=== PATIENT | female | born 1975 | race Caucasian/White ===

== ENCOUNTER → 2021-11-05 15:09 | Outpatient (BNVA) | payer OTHER, SELFPAY | PROVIDERS: PCP Internal Medicine; Visit Provider Nurse Practitioner Family | DX: R53.83 Other fatigue (principal); R56.9 Unspecified convulsions; G43.109 Migraine with aura, not intractable, without status migrainosus; G93.89 Other specified disorders of brain | CPT/HCPCS: 99212 ==

== ENCOUNTER → 2022-02-08 08:15 | Outpatient (BNVA) | payer OTHER, SELFPAY | PROVIDERS: PCP Internal Medicine; Visit Provider Nurse Practitioner Family | DX: R56.9 Unspecified convulsions (principal) ==

== ENCOUNTER 2024-03-01 10:47 | Outpatient (REF) | payer OTHER, SELFPAY ==
[2024-03-01 16:51] LABS: MANUAL DIFF FLAG NO
[2024-03-01 17:05] LABS: Basophils Absolute Auto 0.1 X10*3/uL (0.0-0.2); Basophils Percent Auto 0.8 % (0-2); Eosinophils Absolute Auto 0.1 X10*3/uL (0.0-0.4); Eosinophils Percent Auto 1.6 % (0-4); Hematocrit 39.8 % (37.0-47.0); Hemoglobin 13.2 g/dl (12.0-16.0); Imm Gran Abs Auto 0.02 X10*3/uL (0.00-0.03); Imm Gran Pct Auto 0.3 % (0.0-0.4); Lymphocytes Absolute Auto 1.7 X10*3/uL (1.2-4.9); Lymphocytes Percent Auto 21.8 % (20-40); Mean Corpuscular HGB Conc 33.2 g/dl (31.0-35.0); Mean Corpuscular Hemoglobin 31.9 pg (27.0-33.0); Mean Corpuscular Volume 96.1 fL (80.0-98.0); Mean Platelet Volume 9.8 fL (9.4-12.3); Monocytes Absolute Auto 0.5 X10*3/uL (0.1-1.2); Monocytes Percent Auto 5.9 % (2-11); Neutrophils Absolute Auto 5.4 x10*3/uL (2.0-8.3); Neutrophils Percent Auto 69.6 % (45-73); Platelet Count 312 X10*3/uL (160-400); Red Blood Count 4.14 X10*6/uL (4.20-5.50); White Blood Count 7.7 X10*3/uL (4.8-10.8)
[2024-03-01 17:35] LABS: Carbamazepine Tegretol 8.4 mcg/mL (5.0-12.0)
[2024-03-01 17:39] LABS: Alanine Aminotransferase 18 U/L (0-31); Albumin Level 4.3 g/dL (3.5-5.0); Alkaline Phosphatase 81 U/L (39-117); Anion Gap 14 (12-20); Aspartate Amino Transferase 16 U/L (5-31); Bilirubin Total 0.2 mg/dL (0.0-1.0); Blood Urea Nitrogen 15 mg/dL (9-16); Calcium 9.9 mg/dL (8.4-10.2); Carbon Dioxide 25 mmol/L (22-29); Chloride 104 mmol/L (96-108); Estimated Glomerular Filt Rate > 60; Glucose Random 93 mg/dL (60-115); Sodium 139 mmol/L (135-145); Total Protein 7.2 g/dL (6.5-8.0)
== END 2024-03-01 10:48 | disposition home or self-care (01) ==
LOC: HO.HKASLDS 10:47
PROVIDERS: Visit Provider Nurse Practitioner Family
DX: G40.909 Epilepsy, unspecified, not intractable, without status epilepticus (principal); G93.89 Other specified disorders of brain; G43.109 Migraine with aura, not intractable, without status migrainosus
CPT/HCPCS: 36415; 80053; 80156; 85025

== ENCOUNTER 2024-03-01 10:47 | Outpatient (AMB) | payer OTHER, SELFPAY ==
--- NOTE | 2024-03-01 10:49 | MHC.OFFVIS ---
Vital Signs 03/01/24 10:50 Height 5 ft 3 in Weight 175 lb 4 oz BMI 31.0 BP 114/78 Blood Pressure Location Rt brachial Position Sitting Pulse 88 Pulse Source Pulse Oximeter Pulse Oximetry (%) 97 Oxygen Delivery Method Room Air Intake Visit Reasons: Follow up - LVM w/add Intake Note: Patient presents for follow up. Allergies penicillin V Allergy (Unknown, Verified 03/01/24 10:51) unknown Penicillins [PENICILLINS] Allergy (Unknown, Verified 03/01/24 10:51) BREATHING DIFFICULTIES AND RASH sulfamethoxazole [From SEPTRA] Allergy (Unknown, Verified 03/01/24 10:51) RASH AND HIVES trimethoprim [From SEPTRA] Allergy (Unknown, Verified 03/01/24 10:51) RASH AND HIVES Septra Allergy (Unknown, Uncoded 03/01/24 10:51) Unknown Medication List - Last Reconciled 03/01/24 by MYRTLE Rain amitriptyline 25 mg PO DAILY carbamazepine ER 100 mg PO BID 90 days carbamazepine ER 400 mg PO BID 90 days clonazepam 2 mg PO prn seizure lasting > 2 minutes, may repeat x's 1 (and call 911) PRN; 30 days ibuprofen 800 mg PO .As needed magnesium oxide 400 mg PO BEDTIME 30 days mecobalamin (vitamin B12) mcg PO riboflavin (vitamin B2) (Vitamin B-2) 100 mg PO BID sennosides (senna) 17.2 mg PO BEDTIME PRN HPI Comments Details: 48-yr-old female presents for f/u visit. Pt endorses the following interval medical history changes: Pt was diagnosed w/ diverticulosis and diverticulitis following a hospitalization in Aug 2023 for sepsis. She has had an intentional weight loss- almost 50 lbs through diet and low impact exercises- walking, low impact strength training. She is following a keto diet- does have some cheat days. She is avoiding eating on the couch. She has not had any interval seizure activity. She is due for her f/u brain MRI. She is finding it a bit harder to wake up in the am. She feels she is renzo-menopausal- her menses is more irregular now. Occasionally may feel a little off balance- once every off balance- notes has always had this. Last migraine was about 8 months ago. Has stopped Amitriptyline. When she has a headache, checks to see if she has missed coffee, takes fluids, uses Tylenol, and sometimes takes a nap for a few hrs, may use a cold cap. Trying to avoid NSAIDs d/t diverticulosis. [facility] Medical History (Updated 03/01/24 @ 11:24 by MYRTEL Rain) delivery delivered Surgical History H/O tubal ligation Family History Father Cancer Mother Cancer HTN (hypertension) Maternal Grandmother Skin cancer Maternal Grandfather HTN (hypertension) Maternal Aunt HTN (hypertension) Social History Alcohol intake: current Alcohol intake frequency: holidays/special occasions only Patient Tobacco Use Status: Never used Tobacco Review of Systems Const All systems reviewed & are unremarkable except as noted in HPI and below Physical Exam Vital Signs: Last Vital Signs Pulse 88 03/01/24 10:50 BP 114/78 03/01/24 10:50 Pulse Ox 97 03/01/24 10:50 Oxygen Delivery Method Room Air 03/01/24 10:50 BMI result Body Mass Index 31.0 Const General: cooperative and no acute distress Orientation/consciousness: patient oriented x3 HEENT Head: Yes normocephalic Resp Effort & Inspection: normal respiratory effort and able to speak in complete sentences Neuro General: patient oriented x3, gait normal and CN's II-XI intact bilaterally Cognition (Neuro): normal cognition Motor exam (neuro): 5/5 motor strength present throughout Psych Appearance: grossly normal Mental Status: mental status grossly normal Speech and movement: Normal speech and movement present Affect: normal affect Attitude: cooperative Thought process: Normal thought process present Thought content: Normal thought content present Insight: Good insight present (Psych) Judgement: Good judgement present (Psych) Assessment & Plan Assessment & Plan (1) Focal seizure: Code(s): R56.9 - Unspecified convulsions Category: Medical (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 Pt has current supply of Clonazepam 2mg ODT prn breakthrough seizure > 2 min. Pt has seizure plan with work/family. F/U brain MRI due in/around February 2024. Check CBC, CMP, TSH, Tegretol level.. Continue B2 400mg qam, Magnesium 400mg qhs. Continue MVI, B-12, fiber tab. OTC Tylenol and rest prn migraine. Migraine tx contraindications- NSAIDs d/t diverticulosis. Future considerations: gepant, if migraines worsen. f/u in 1 yr or sooner prn. Orders: Orders Complete Blood Count Auto Diff Today Comprehensive Met. Panel Today Carbamazepine Tegretol Today G40.909 - Epilepsy, unspecified, not intractable, without status epilepticus Coding Level of Care Code Est Pt Level 4 (14025) Diagnoses Focal seizure R56.9 Suprasellar mass G93.89 Migraine with aura and without status migrainosus, not intractable G43.109
[2024-03-01 10:50] VITALS: BP 114/78; PULSE 88; O2SAT 97; BMI 31.0
== END 2024-03-01 11:31 | disposition home or self-care (01) ==
PROVIDERS: PCP Internal Medicine; Visit Provider Nurse Practitioner Family
DX: R56.9 Unspecified convulsions (principal); G93.89 Other specified disorders of brain; G43.109 Migraine with aura, not intractable, without status migrainosus
CPT/HCPCS: 99214

== ENCOUNTER 2025-03-05 14:24 | Outpatient (AMB) | payer OTHER, SELFPAY ==
[2025-03-05 14:36] VITALS: BP 100/72; PULSE 85; O2SAT 96
--- NOTE | 2025-03-05 14:36 | MHC.OFFVIS ---
Vital Signs 03/05/25 14:36 Weight 191 lb BP 100/72 Blood Pressure Location Lt brachial Pulse 85 Pulse Source Pulse Oximeter Pulse Oximetry (%) 96 Oxygen Delivery Method Room Air Intake Visit Reasons: Follow up Intake Note: Patient presents follow up for seizures/fatigue. Strategic Communications Specialist Required: No Accompanied by: Self / Same As Patient Allergies penicillin V Allergy (Unknown, Verified 03/05/25 14:38) unknown Penicillins [PENICILLINS] Allergy (Unknown, Verified 03/05/25 14:38) BREATHING DIFFICULTIES AND RASH sulfamethoxazole [From SEPTRA] Allergy (Unknown, Verified 03/05/25 14:38) RASH AND HIVES trimethoprim [From SEPTRA] Allergy (Unknown, Verified 03/05/25 14:38) RASH AND HIVES Septra Allergy (Unknown, Uncoded 03/01/24 10:51) Unknown Medication List - Last Reconciled 03/05/25 by MYRTLE Rain carbamazepine ER 100 mg PO BID 90 days carbamazepine ER 400 mg PO BID 90 days clonazepam 2 mg PO prn seizure lasting > 2 minutes, may repeat x's 1 (and call 911) PRN; 30 days ibuprofen 800 mg PO .As needed magnesium oxide 400 mg PO BEDTIME 90 days mecobalamin (vitamin B12) mcg PO riboflavin (vitamin B2) (Vitamin B-2) 100 mg PO BID riboflavin (vitamin B2) 400 mg PO DAILY 90 days semaglutide mg subcut sennosides (senna) 17.2 mg PO BEDTIME PRN HPI Comments Details: 48-yr-old female presents for f/u visit of seizure, intracranial suprasellar mass, and migraine. Pt reports she has started semiglutide (compounded), as she has had gained back about 20lbs in the last year. So far, she does not feel that it is working. The day following the injection, she feels she has increased food cravings. She is trying to be active, but not as active as I should be . Started doing light weight resistance. Trying to get herself on a regular schedule. Finds that it is harder to get in the am, going to bed earlier. Her has told her she snores. She endorses daytime sleepiness. She did have a routine f/u colonoscopy for f/u of diverticulitis. Had interval cervical and uterine polyp excision. Has been having renzo-menospuasal s/s- irregular menses, vaginal dryness- now using an OTC hormonal support x's about 2 months- seems to be helping w/ her mood and some w/ her menstrual cycle. She has not had any interval seizure activity. She had her last brain MRI last year- stable suprasellar mass. Followed by Dr. Reyes She does note that she feels a bit more forgetful, and not as on top of her work as she normally is. She states her has told her that she snores at times, has more noticeable excessive daytime sleepiness- can easily doze off when inactive. States she can even fall asleep after taking caffeine. Typically takes a coffee in the morning and I caffeine supplement drink in the early afternoon. States she is just having occasional migraine. Typically treats migraines with increase fluid, Tylenol, and sometimes takes a nap for a few hrs, may use a cold cap. Trying to avoid NSAIDs d/t diverticulosis. [facility] Medical History (Updated 03/05/25 @ 15:26 by MYRTLE Rain) delivery delivered Surgical History (Updated 03/05/25 @ 14:39 by Naina Coy CMA) H/O colonoscopy H/O tubal ligation Family History Father Cancer Mother Cancer HTN (hypertension) Maternal Grandmother Skin cancer Maternal Grandfather HTN (hypertension) Maternal Aunt HTN (hypertension) Social History Alcohol intake: current Alcohol intake frequency: holidays/special occasions only Patient Tobacco Use Status: Never used Tobacco Physical Exam Vital Signs: Last Vital Signs Pulse 85 03/05/25 14:36 BP 100/72 03/05/25 14:36 Pulse Ox 96 03/05/25 14:36 Oxygen Delivery Method Room Air 03/05/25 14:36 Const General: cooperative and no acute distress Orientation/consciousness: patient oriented x3 HEENT Head: Yes normocephalic Resp Effort & Inspection: normal respiratory effort and able to speak in complete sentences Neuro General: patient oriented x3, gait normal and CN's II-XI intact bilaterally Cognition (Neuro): normal cognition Motor exam (neuro): 5/5 motor strength present throughout Psych Appearance: grossly normal Mental Status: mental status grossly normal Speech and movement: Normal speech and movement present Affect: normal affect Attitude: cooperative Thought process: Normal thought process present Thought content: Normal thought content present Insight: Good insight present (Psych) Judgement: Good judgement present (Psych) Assessment & Plan Assessment & Plan (1) Snoring: Code(s): R06.83 - Snoring Category: Medical (2) Excessive daytime sleepiness: Code(s): G47.19 - Other hypersomnia Category: Medical (3) Sleep difficulties: Code(s): G47.9 - Sleep disorder, unspecified Category: Medical (4) Focal seizure: Code(s): R56.9 - Unspecified convulsions Category: Medical (5) 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 HST to assess for sleep apnea Patient advised to track nutritional intake across several days, to ensure she is consistently consuming enough nutrients. For seizure: Continue Tegretol XR 500mg bid. Clonazepam 2mg ODT prn breakthrough seizure > 2 min. Pt has seizure plan with work/family. Last brain MRI showed stable suprasellar mass. Check CBC, CMP, TSH, Tegretol level.. For migraine: Continue B2 400mg qam, Magnesium 400mg qhs. Continue MVI, B-12. OTC Tylenol and rest prn migraine. Migraine tx contraindications- NSAIDs d/t diverticulosis. Future considerations: gepant, if migraines worsen. Will follow-up upon review of above and patient to follow-up in clinic in 6 months or sooner prn. Orders: Orders RT home sleep study Today G47.19 - Other hypersomnia, G47.9 - Sleep disorder, unspecified, R06.83 - Snoring Carbamazepine Tegretol Today G40.909 - Epilepsy, unspecified, not intractable, without status epilepticus, R56.9 - Unspecified convulsions Comprehensive Met. Panel Today R56.9 - Unspecified convulsions Vitamin D 25-OH (D2 and D3) Today E66.9 - Obesity, unspecified, R53.83 - Other fatigue Complete Blood Count Auto Diff Today R56.9 - Unspecified convulsions Medications: New riboflavin (vitamin B2) 400 mg PO DAILY 90 days 90 tabs 3RF Changed From magnesium oxide 400 mg PO BEDTIME 30 days 30 tabs 0RF To magnesium oxide 400 mg PO BEDTIME 90 days 90 tabs 3RF Refilled carbamazepine ER take w/ 100mg tab to total 500mg bid 400 mg PO BID 90 days 180 tabs 3RF Coding Level of Care Code Est Pt Level 4 (43770) Diagnoses Snoring R06.83 Excessive daytime sleepiness G47.19 Sleep difficulties G47.9 Focal seizure R56.9 Suprasellar mass G93.89 Migraine with aura and without status migrainosus, not intractable G43.109 [place] Sleepiness Scale Questions Sitting and reading: high chance of dozing Watching TV: high chance of dozing Sitting inactive in a theater, movie etc.: moderate chance of dozing As a passenger in a car for an hour without break: would never doze Lying down in the afternoon when circumstances permit: high chance of dozing Sitting and talking to someone: slight chance of dozing Sitting quietly after lunch without alcohol: moderate chance of dozing In a car, while stopped for a few minutes in the traffic: would never doze ESS < 10: normal, ESS > 12: pathologic: 14
--- OUTSIDE RECORDS SUMMARY | 2025-03-05 15:43 | XMS_ITS ---
Author Organization [email or web address] [facility] Address [address] [facility] [address] [place] [address] Care Team Providers Care Frame Stripper And Crusher Name Role Phone RODNEY SANTIAGO, [facility] Primary Care Provider Un available Marlyn Kaplanli Unavailable [phone] Allergies Allergen (clinical drug ingredient) Drug/Non Drug Allergy documented on EMR Reaction Allergy Type Onset Date Status Septra rash Drug Allergy Active Penicillin anaphylaxis Drug Allergy Acti ve Substance with sulfonamide structure and antibacterial mechanism of action (substance) Sulfa Antibiotics rash Drug Allergy Active Results Component Value Reference Range Notes Urinalysis Reviewed date:05/17/2024 11:11:26 AM Interpretation: Performing Lab: Notes/Report: PH 6.0 PROTEIN NEG GLUCOSE NEG BLOOD NEG [id number] IGP No Culture 30 Plus Reviewed date:05/22/2024 12:57:27 PM Interpretation: Performing Lab:[facility], [address] [place] [address], [address], [place], Phone - [phone], Director - [facility] Notes/Report: Clinical Information:[id number] LMP / Prev Treat...PRL=[id number] No. of containers..01 ThinPrep Vial DIAGNOSIS: NEGATIVE FOR INTRAEPITHELIAL LESION OR MALIGNANCY. PREDOMINANCE OF COCCOBACILLI CONSISTENT WITH SHIFT IN VAGINAL PEPITO IS PRESENT. Specimen adequacy: Satisfact ory for evaluation. No endocervical component is identified. Clinician provided ICD10: Z0 1.419 Performed by: Tino patricia, Apprenticeship Representative (ASCP) . . Note: The Pap smear is a screening test designed to aid in the detection of premalignant and malignant conditions of the uterine cervix. It is not a diagnostic procedure and should not be used as the sole means of detecting cervical cancer. Both false-positive and false-negative reports do occur. . Test Methodology: This liquid based ThinPrep(R) pap test was screened with the use of an image guided system. HPV Aptima Negative Negative This nucleic acid amplification test detects fourteen high-risk HPV types (16,18,31,33,35,39,45,51,52,56,58 ,59,66,68) without differentiation. HPV Genotype Reflex Criteria not met, HPV Genotype not performed. PDF Report Reviewed date:05/22/2024 12:57:09 PM Interpretation: Performing Lab:[facility], [address], [address], [place], Phone - [phone], Director - [facility] Notes/Report: Clinical Information:[id number] LMP / Prev Treat...CQE=[id number] No. 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 40-49 Medications Medication SIG (Take, Route, Fr equency, Duration) Notes Start Date End Date Status clonazePAM 2 MG DISSOLVE 1 TABLET BY MOUTH NEEDED FOR SEIZURE LONGER THAN 2 MINUTES, MAY REPEAT ONCE AND CALL 911 Oral for 30 Days Active carBAMazepine ER 400 MG TAKE 1 TABLET BY MOUTH TWICE A DAY WITH 100MG Oral for 90 Days Active Magnesium Oxide 400 MG TAKE 1 TABLET BY MOUTH EVERY DAY Oral for 30 Days Active carBAMazepine ER 100 MG TAKE 1 TABLET BY MOUTH TWICE A DAY Oral for 90 Days Active Ondansetron HCl 4 MG TAKE 1 TABLET BY MO UTH EVERY 8 HOURS NEEDED FOR NAUSEA AND VOMITING Oral for 3 Days Act carlos Vitamin B12 100 MCG as directed Orally Active Multivitamin - 1 tablet Orally Once a day Active Senna-Time 8.6 MG TAKE 2 TABLETS BY MO UTH AT BEDTIME NEEDED FOR CONSTIPATION Oral for 30 Days Active Problems Problem Type SNOMED Code ICD Code Onset Dates Problem Status W/U Status Risk Notes Problem 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, 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 Problem Fibromyalgia (327509665) Fibromyalgia (M79.7) Active confirmed Problem Diverticulosis o f large intestine without perforation or abscess without bleeding (K57.30) Active confirmed Problem Excessive and frequent menstruation (418016814) Excessive and frequent menstruation with regular cycle (N92.0) Active confirmed Vital Signs Height 63 in 05/17/2024 Weight 174 lbs 05/17/2024 BMI 30.82 kg/m2 05/17/2024 Encounters Encounter Location Date Provider Diagnosis [address] [place] [address] 05/17/2024 Marlene Kaplan Encounter for gynecological examination (general) (routine) without abnormal findings Z01.419 ; Encounter for screening mammogram for malignant neoplasm of breast Z12.31 ; Excessive and frequent menstruation with regular cycle N92.0 and Polyp of cervix uteri N84.1 Assessments Encounter Date Diagnosis (ICD Code) Assessment Notes Treatment Notes Treatment Clinical Notes Section Notes 05/17/2024 Encounter for gynecological examination (general) (routine) without abnormal findings (ICD-10 - Z01.419) PAP TEST WITH HPV TYPING WAS OBTAINED. 05/17/2024 Encounter for screening mammogram for malignant neoplasm of breast (ICD-10 - Z12.31) REGULAR MAMMOGRAMS AND SBE'S WERE RECOMMENDED. 05/17/2024 Excessive and frequent menstruation with regular cycle (ICD-10 - N92.0) DISCUSSED COMMON CAUSES OF MENORRHAGIA. RECOMMENDED PROCEEDING WITH HSONO AND EMB. THESE WERE DISCUSSED AND PAT AGREED. MOTRIN PRIOR TO THE PROCEDURES. 05/17/2024 Polyp of cervix uteri (ICD-10 - N84.1) DISCUSSED CERVICAL POLYP NOTED ON EXAM. DISCUSSED DX AND ADVISED POLYPECTOMY. WE CAN DO THIS AT THE SAME TIME HSONO. PROCEDURE WAS DISCUSSED AND SHE AGREED. Plan Of Treatment Treatment Notes Assessment Notes Encounter for gynecological examination (general) (routine) without abnormal findings PAP TEST WITH HPV TYPING WAS OBTAINED. Encounter for screening mamm ogram for malignant neoplasm of breast REGULAR MAMMOGRAMS AND SBE'S WERE RECOMMENDED. Excessive and frequent menst ruation with regular cycle DISCUSSED COMMON CAUSES OF MENORRHAGIA. RECOMMENDED PROCEEDING WITH HSONO AND EMB. THESE WERE DISCUSSED AND PAT AGREED. MOTRIN PRIOR TO THE PROCEDURES. Polyp of cervix uteri DISCUSSED CERVICAL POLYP NOTED ON EXAM. DISCUSSED DX AND ADVISED POLYPECTOMY. WE CAN DO THIS AT THE SAME TIME HSONO. PROCEDURE WAS DISCUSSED AND SHE AGREED. Pending Test Test Name Order Date MM Digital Mammo Screening 05/17/2024 Next Appt Details Follow Up: 3 Weeks, Reason: Provider Name:Marlene prescott, 05/23/2025 03:00:00 PM, [address] [address] [facility] [address] [facility], [address], [place], [address], Progress Notes * JEAN SCHWARTZDOB:1975 (48 yo F)Acc No.[id number]:05/17/2024 Progress Note Patient:?JEAN SCHWARTZ Appointment Provider:?Marlene prescott M.D. :1975???Age:48 Y???Sex:Female D ate:05/17/2024 Address:[address] [place], [place] [id number] Pcp:DACIA STEVENS MD Subjective: * Chief Complaints: * ???Annual SMALL BUSINESS DIRECTOR PhysicalAnnual SMALL BUSINESS DIRECTOR Physical 40-49 * HPI: ???New/Follow-up Patient Consult:? PAT IS NEW TO OUR OFFICE.? SHE WAS REFERRED TO US BY [facility]. SHE HAS HAD 5 PREGNANCIES AND 4 DELIVERIES AND 1 MISCARRIAGE.? THE FIRST 3 WERE DELIVERED VAGINALLY AND THE LAST BY C/SECTION.? SHE HAS HAD BOTH TUBES TIED. HER MENSES CONTINUE TO BE REGULAR BUT ARE HEAVIER WITH CLOTS AND LAST LONGER, 5 TO 7 DAYS INSTEAD OF 3 TO 5.? THIS STARTED A SEVERAL MONTHS AGO.? SHE HAS OCCASIONAL NIGHT SWEATS.?? SHE HAS A HX OF FIBROMYALGIA AND DIVERTICULOSIS.? SHE WAS HOSPITALIZED DUE TO THIS IN AUG 2023.?? SHE DENIES ANY ABNORMAL PAP TESTS.? HER LAST PAP WAS TAKEN PRIOR TO COVID.? SHE SAYS AN ENODMETRIAL BIOPSY WAS ALSO OBTAINED WITH NEGATIVE FINDINGS. SHE DENIES ANY ABNORMAL MAMMOGRAMS.? HER LAST ONE WAS IN 2021. SHE HAD A COLONOSCOPY DONE IN JANUARY 2024. ???Annual:? Patient presents for annual exam, ages 40-49. ?General Health Maintenance:?Current breast complaints:?no breast pain, mass, discharge, or skin changes ?Urinary problems:?patient reports no urinary health problems or bowel health problems ?Calcium intake:?takes adequate calcium via diet and supplementation ?Significant SMALL BUSINESS DIRECTOR problems:?no significant pipeline executive symptoms or problems * ROS:?general:?no?chest pain.?no?palpitations.?no?headache.?no?cough.?no?shortness of breath.?no?fever.?no?unexplained weight loss.?no?nausea/vomiting.?no?change in bowel movements.?no blood in stool.?no?genitourinary complaints.?no?skin complaints.? * Medical History:? * Wireless Technician History:?/ Para?5/4.?Sexual activity?currently sexually active.?Last Pap Smear:?PT DOES NOT RECALL.?Mammogram:?2021.?LMP and menses?04/28/24.?History of STD's:?Herpes Simplex Virus (HSV) 2001.? Control:?bilateral tubal ligation.?Menarche?13.?Colonoscopy?01/2024.? * OB History:?Total pregnancies?5.?NVD?3.?(s)?1.?(s)?1.?Adopted?CHILD PLACED FOR ADOPTION IN .? * Surgical History:?C SECTION 1996BILATERAL TUBAL LIGATION 1997 * Hospitalization/Major Diagno stic Procedure:?CHILDBIRTH DIVERTICULITUS 2022 * Family History:?No Family Hi story documented..? * Medications:?TakingMultivita min - Tablet 1 tablet Orally Once a day Vitamin B12 100 MCG Tablet as directed Orally Senna-Time 8.6 MG Tablet TAKE 2 TABLETS BY MOUTH AT BEDTIME NEEDED FOR CONSTIPATION Oral carBAMazepine ER 400 MG Tablet Extended Release 12 Hour TAKE 1 TABLET BY MOUTH TWICE A DAY WITH 100MG Oral carBAMazepine ER 100 MG Tablet Extended Release 12 Hour TAKE 1 TABLET BY MOUTH TWICE A DAY Oral Magnesium Oxide 400 MG Tablet TAKE 1 TABLET BY MOUTH EVERY DAY Oral Ondansetron HCl 4 MG Tablet TAKE 1 TABLET BY MOUTH EVERY 8 HOURS NEEDED FOR NAUSEA AND VOMITING Oral clonazePAM 2 MG Tablet Disintegrating DISSOLVE 1 TABLET BY MOUTH NEEDED FOR SEIZURE LONGER THAN 2 MINUTES, MAY REPEAT ONCE AND CALL 911 Oral Medication List reviewed and reconciled with the patientTaking Multivitamin - Tablet 1 tablet Orally Once a day Taking Vitamin B12 100 MCG Tablet as directed Orally Taking Senna- Time 8.6 MG Tablet TAKE 2 TABLETS BY MOUTH AT BEDTIME NEEDED FOR CONSTIPATION Oral Taking carBAMazepine ER 400 MG Tablet Extended Release 12 Hour TAKE 1 TABLET BY MOUTH TWICE A DAY WITH 100MG Oral Taking carBAMazepine ER 100 MG Tablet Extended Release 12 Hour TAKE 1 TABLET BY MOUTH TWICE A DAY Oral Taking Magnesium Oxide 400 MG Tablet TAKE 1 TABLET BY MOUTH EVERY DAY Oral Taking Ondansetron HCl 4 MG Tablet TAKE 1 TABLET BY MOUTH EVERY 8 HOURS NEEDED FOR NAUSEA AND VOMITING Oral Taking clonazePAM 2 MG Tablet Disintegrating DISSOLVE 1 TABLET BY MOUTH NEEDED FOR SEIZURE LONGER THAN 2 MINUTES, MAY REPEAT ONCE AND CALL 911 Oral Medication List reviewed and reconciled with the patient * Allergies:?Septra: rashSulfa Antibiotics: rashPenicillin: anaphylaxisno[Allergies Verified] Objective: * Vitals:?Ht: 63 in, Wt:174lbs , BMI:30.82Index. * Examination: ???General Exam: ?CONSTITUTIONAL:?General Appearance:?alert, in no acute distress, normal, well nourished ?NECK/THYROID:?Inspection/Palpation:?normal ?Thyroid:?normal size and shape ?RESPIRATORY:?Auscultation: clear to auscultation bilaterally, Respiratory Effort: normal.?CARDIOVASCULAR:?Auscultation: regular rate and rhythm.?BREAST, Right:?Inspection/Palpation:?no discharge, no masses present, no nipple retraction, no skin changes, no skin dimpling, no tenderness, no lymphadenopathy, no axillary mass, no axillary tenderness ?BREAST, Left:?Inspection/Palpation:?no discharge, no masses present, no nipple retraction, no skin changes, no skin dimpling, no tenderness, no lymphadenopathy, no axillary mass, no axillary tenderness ?GASTROINTESTINAL:?Abdomen:?no masses, nontender, nondistended ?Liver and Spleen:?normal ?Hernias:?no hernias present, no inguinal adenopathy ?MUSCULOSKELETAL:?Inspection/Palpation:?no clubbing, cyanosis, or edema ?SKIN:?Skin:?normal ?NEURO/PSYCH:?Orientation:?time , place, person ?Mood/Affect:?normal?Genitourinary: ?EXTERNAL GENITALIA:?External Genitalia:?normal, no lesions ?VAGINA:?Vagina:?normal appearance, no abnormal discharge, no lesions ?BLADDER:?Bladder:?no mass, nontender ?URETHRA:?Urethra:?no erythema or lesions present ?CERVIX:?Cervix:?no lesions, nontender POLYP NOTED AT CERVICAL OS ?UTERUS:?Uterus:?nontender, normal contour, normal mobility, normal size ?ADNEXA:?Adnexa:?no masses, no tenderness ?ANUS AND PERINEUM:?Anus/Perineum:?visually normal??? Assessment: * Assessment: 1.?Encounter for gynecologic al examination (general) (routine) without abnormal findings - Z01.419???2.?Encounter for screening mammogram for malignant neoplasm of breast - Z12.31???3.?Excessive and frequent menstruation with regular cycle - N92.0? ?4.?Polyp of cervix uteri - N84.1??? Plan: * Treatment: ?LAB: Urinalysis (Collection Date & Time - 05/17/2024)* ? Value Reference Range ?PH 6.0 * ?PROTEIN NEG * ?GLUCOSE NEG * ?BLOOD NEG Notes: PAP TEST WITH HPV TYPING WAS OBTAINED.??2.?Encounter for screening mammogram for malignant neoplasm of breast?Imaging: MM Digital Mammo Screening Notes: REGULAR MAMMOGRAMS AND SBE'S WERE RECOMMENDED.??3.?Excessive and frequent menstruation with regular cycle? Notes: DISCUSSED COMMON CAUSES OF MENORRHAGIA. RECOMMENDED PROCEEDING WITH HSONO AND EMB. THESE WERE DISCUSSED AND PAT AGREED. MOTRIN PRIOR TO THE PROCEDURES.??4.?Polyp of cervix uteri? Notes: DISCUSSED CERVICAL POLYP NOTED ON EXAM. DISCUSSED DX AND ADVISED POLYPECTOMY. WE CAN DO THIS AT THE SAME TIME HSONO. PROCEDURE WAS DISCUSSED AND SHE AGREED.?? * Procedure Codes:? * Preventive Medicine:? ??YOUR PREVENTIVE WELLNESS PLAN:?Osteoporosis prevention?Calcium, D, strength training.?Breast Cancer Screening (Mammogram):?annually.?Cervical Cancer Screening (Pap Smear):?q 3 years with HPV screen.?Colorectal Cancer Screening:?q 10 years.? * Follow Up:?3 Weeks * Images: Billing Information: * Visit Code:? 44019 Preventive Care New Pt. Age 40-64. 67625 Preventive Care Est Pt. Age 40-64. * Procedure Codes:? * Sign off status: Completed true * Appointment Provider:?Marlene Kaplan M.D. Date:?05/17/2024 Generated for Tresa amaro/Brian/Piper on:?03/05/2025 03:43 PM EDT History and Physical Notes * HPI (History of Present Illness) Category Sub-Category Detail Notes Category Not es New/Follow-up Patient Consult PAT IS NEW TO OUR OFFICE. SHE WAS REFERRED TO US BY [facility]. SHE HAS HAD 5 PREGNANCIES AND 4 DELIVERIES AND 1 MISCARRIAGE. THE FIRST 3 WERE DELIVERED VAGINALLY AND THE LAST BY C/SECTION. SHE HAS HAD BOTH TUBES TIED. HER MENSES CONTINUE TO BE REGULAR BUT ARE HEAVIER WITH CLOTS AND LAST LONGER, 5 TO 7 DAYS INSTEAD OF 3 TO 5. THIS STARTED A SEVERAL MONTHS AGO. SHE HAS OCCASIONAL NIGHT SWEATS. SHE HAS A HX OF FIBROMYALGIA AND DIVERTICULOSIS. SHE WAS HOSPITALIZED DUE TO THIS IN AUG 2023. SHE DENIES ANY ABNORMAL PAP TESTS. HER LAST PAP WAS TAKEN PRIOR TO COVWA. SHE SAYS AN ENODMETRIAL BIOPSY WAS ALSO OBTAINED WITH NEGATIVE FINDINGS. SHE DENIES ANY ABNORMAL MAMMOGRAMS. HER LAST ONE WAS IN 2021. SHE HAD A COLONOSCOPY DONE IN JANUARY 2024. Annual General Health Maintenance: Current breast complaints:: no breast pain, mass, discharge, or skin changes Urinary problems:: patient r lashawn no urinary health problems or bowel health problems Calcium intake:: takes adequ ate calcium via diet and supplementation Significant SMALL BUSINESS DIRECTOR problems:: n o significant pipeline executive symptoms or problems Examination Category Sub-Category Detail Notes Category Not es General Exam CONSTITUTIONAL: General Appearan ce:: alert, in no acute distress, normal, well nourished NECK/THYROID: Thyroid:: normal size and shape Inspection/Palpation:: normal RESPIRATORY: Auscultation: clear to auscultation bilaterally, Respiratory Effort: normal CARDIOVASCULAR: Auscultation: regula r rate and rhythm GASTROINTESTINAL: Hernias:: no hernias present, no inguinal adenopathy Liver and Spleen:: normal Abdomen:: no masses, nontender, nondiste nded MUSCULOSKELETAL: Inspection/Palpation:: no clubb ing, cyanosis, or edema SKIN: Skin:: normal NEURO/PSYCH: Mood/Affect:: normal Orientation:: time , place, person BREAST, Right: Inspection/Palpation :: no discharge, no masses present, no nipple retraction, no skin changes, no skin dimpling, no tenderness, no lymphadenopathy, no axillary mass, no axillary tenderness BREAST, Left: Inspection/Palpation :: no discharge, no masses present, no nipple retraction, no skin changes, no skin dimpling, no tenderness, no lymphadenopathy, no axillary mass, no axillary tenderness Genitourinary EXTERNAL GENITALIA: External Genitalia:: nor mal, no lesions VAGINA: Vagina:: normal appe arance, no abnormal discharge, no lesions BLADDER: Bladder:: no mass, nontender URETHRA: Urethra:: no erythem a or lesions present CERVIX: Cervix:: no lesions, nontender P OLYP NOTED AT CERVICAL OS UTERUS: Uterus:: nontender, normal contour, normal mobility, normal size ADNEXA: Adnexa:: no masses, no tendernes s ANUS AND PERINEUM: Anus/Perineum:: visually norm al
--- OUTSIDE RECORDS SUMMARY | 2025-03-05 15:43 | XMS_ITS ---
Author Organization [employer] Address [address] [facility] [address] [place] [address] Care Team Providers Care Briquette Machine Operator Helper Name Role Phone RODNEY SANTIAGO, [facility] Primary Care Provider Un available Marlene Kaplan [phone] NOEMÍ STARR Encounters Encounter Location Date Provider Diagnosis [facility] [employer] [address] [place] [address] [address] [place] [address] 06/08/2024 Marlene Kaplan Plan Of Treatment Next Appt Details Provider Name:Marlene prescott, 05/23/2025 03:00:00 PM, [address] [facility] [facility] [address], [place], [address], Progress Notes * JEAN SCHWARTZDOB:1975 (48 yo F)Acc No.[id number]:06/08/2024 Patient:?JEAN SCWHARTZ :1975???Age:48 Y???Sex:Female Address:[address] [place] [address], [address] * true * Date:? Generated for Printi prem/Brian/eTransmitting on:?03/05/2025 03:43 PM EDT
--- OUTSIDE RECORDS SUMMARY | 2025-03-05 15:43 | XMS_ITS ---
Author Organization [facility] Address [address] [place] [address] Care Team Providers Care Change Management Consultant Name Role Phone RODNEY SANTIAGO, [facility] Primary Care Provider Un available KaplanMarlynli Unavailable [phone] Allergies Allergen (clinical drug ingredient) Drug/Non Drug Allergy documented on EMR Reaction Allergy Type Onset Date Status Septra rash Drug Allergy Active Penicillin anaphylaxis Drug Allergy Acti ve Substance with sulfonamide structure and antibacterial mechanism of action (substance) Sulfa Antibiotics rash Drug Allergy Active Results Component Value Reference Range Notes Test, Urine Reviewed date:06/08/2024 02:25:23 PM Interpretation: Performing Lab: Notes/Report: Test, Urine Negative SURGICAL PATHOLOGY Reviewed date:06/19/2024 08:18:37 AM Interpretation: Performing Lab:Testing performed or reported by [facility], a Service of [facility], [address] [place] [address] Praveen Chavez MD, Host Hostess [facility]# [id number] Notes/Report: Patient Name: JEAN SCHWARTZ Lab Patient : 1975 (Age: 48) Collection Date: 06/08/2024 Accession Date: 06/11/2024 Sign Out Date: 06/18/2024 Tissue Source: 1:CERVICAL POLYP Final Diagnosis: Cervical polyp: - Benign endocervical polyp. Primary Pathologist:Keaton Atkinson M.D. electronically signed out by: Keaton Atkinson M.D. / [facility] Clinical History: Cervical polyp Gross Description: Labeled cervical polyp . Received in formalin is a 1.5 x 0.4 x 0.3 cm soft avitia, red polypoid tissue. The specimen is bisected and entirely submitted. 1-2 pieces, x 2, EOE. (EG)* As of January 07, 2024, the specimen processing and staining is performed at [facility], [address] [place] [address] (CLIA#[id number]). Its performance characteristics determined by [facility]. Brittni Skinner M.D. Host Hostess of Surgical Pathology, Ramón Garza M.D. Host Hostess Cytopathology Phone #: [phone], On-Call Pathologist: [id number] REASON FOR VISIT HSONO/EB/MENORRHAGIA/POLYP REMOVAL Medications Medication SIG (Take, Route, Fr equency, Duration) Notes Start Date End Date Status carBAMazepine ER 400 MG TAKE 1 TABLET BY MOUTH TWICE A DAY WITH 100MG Oral for 90 Days Active Vitamin B12 100 MCG as directed Orally Active Senna-Time 8.6 MG TAKE 2 TABLETS BY MO UTH AT BEDTIME NEEDED FOR CONSTIPATION Oral for 30 Days Active Multivitamin - 1 tablet Orally Once a day Active clonazePAM 2 MG DISSOLVE 1 TABLET BY MOUTH NEEDED FOR SEIZURE LONGER THAN 2 MINUTES, MAY REPEAT ONCE AND CALL 911 Oral for 30 Days Active Magnesium Oxide 400 MG TAKE 1 TABLET BY MOUTH EVERY DAY Oral for 30 Days Active carBAMazepine ER 100 MG TAKE 1 TABLET BY MOUTH TWICE A DAY Oral for 90 Days Active Ondansetron HCl 4 MG TAKE 1 TABLET BY MO UTH EVERY 8 HOURS NEEDED FOR NAUSEA AND VOMITING Oral for 3 Days Act carlos Encounters Encounter Location Date Provider Diagnosis [address] [address] 06/08/2024 Marlene Kaplan Excessive and frequent menstruation with regular cycle N92.0 and Polyp of cervix uteri N84.1 Assessments Encounter Date Diagnosis (ICD Code) Assessment Notes Treatment Notes Treatment Clinical Notes Section Notes 06/08/2024 Excessive and frequent menstruation with regular cycle (ICD-10 - N92.0) HSONO WAS PERFORMED AND THICK ENDOMETRIUM WITH AN ENDOMETRIAL POLYP WAS NOTED. DISCUSSED THESE FINDINGS AND NEED FOR HYSTEROSCOPY, POLYPECTOMY AND D&C. PROCEDURES WERE DISCUSSED IN DETAIL. WILL REFER TO DR PATINO OR HER GROUP FOR THESE PROCEDURES. 06/08/2024 Polyp of cervix uteri (ICD-10 - N84.1) CERVICAL POLYP WAS EXCISED WITHOUT DIFFICULTY AND SPECIMEN SENT TO PATHOLOGY. Plan Of Treatment Treatment Notes Assessment Notes Excessive and frequent menst ruation with regular cycle HSONO WAS PERFORMED AND THICK ENDOMETRIUM WITH AN ENDOMETRIAL POLYP WAS NOTED. DISCUSSED THESE FINDINGS AND NEED FOR HYSTEROSCOPY, POLYPECTOMY AND D&C. PROCEDURES WERE DISCUSSED IN DETAIL. WILL REFER TO DR PATINO OR HER GROUP FOR THESE PROCEDURES. Polyp of cervix uteri CERVICAL POLYP WAS EXCISED WITHOUT DIFFICULTY AND SPECIMEN SENT TO PATHOLOGY. Next Appt Details Follow Up: prn, Reason: Provider Name:Marlene prescott, 05/23/2025 03:00:00 PM, [address], [address], [place], [address], Procedure Notes * Category Sub-Category Detail Notes Sonohysterogram procedure Cervix prepped w ith aseptic solutionCatheter advanced easily, Lining thick at 13.5 mm, Polyp(s) noted, Progress Notes * JEAN SCHWARTZDOB:1975 (48 yo F)Acc No.[id number]:06/08/2024 Patient:?JEAN SCHWARTZ Appointment Provider:?Marlene prescott M.D. :1975???Age:48 Y???Sex:Female D ate:06/08/2024 Address:[address] [place], [place] [id number] Pcp:DACIA STEVENS MD Subjective: * Chief Complaints: * ???HSONO/EB/MENORRHAGIA/POLY P REMOVAL * HPI: ???New/Follow-up Patient Consult:? PAT HAS HAD HEAVY MENSES FOR SEVERAL MONTHS.? SHE IS HERE FOR HSONO AND POSSIBLE EMB. SHE WAS ALSO NOTED TO HAVE A CERVICAL POLYP WHEN SEEN LAST MONTH.? SHE IS ALSO HERE FOR POLYPECTOMY. * ROS:?general:?no?chest pain.?no?palpitations.?no?headache.?no?cough.?no?shortness of breath.?no?fever.?no?unexplained weight loss.?no?nausea/vomiting.?no?change in bowel movements.?no blood in stool.?genitourinary complaints?yes,?MENORRHAGIA.?no?skin complaints.? * Medical History:? * Medications:?TakingMultivita min - Tablet 1 tablet [...] rashSulfa Antibiotics: rashPenicillin: anaphylaxisno[Allergies Verified] Objective: * Vitals:? Assessment: * Assessment: 1.?Excessive and frequent me nstruation with regular cycle - N92.0???2.?Polyp of cervix uteri - N84.1??? Plan: * Treatment: ? Value Reference Range ? Test, Urine Negative * LEN Zimmerman 06/08/2024 02:23:49 PM EDT > Notes: HSONO WAS PERFORMED AND THICK ENDOMETRIUM WITH AN ENDOMETRIAL POLYP WAS NOTED. DISCUSSED THESE FINDINGS AND NEED FOR HYSTEROSCOPY, POLYPECTOMY AND D&C. PROCEDURES WERE DISCUSSED IN DETAIL. WILL REFER TO DR PATINO OR HER GROUP FOR THESE PROCEDURES.??2.?Polyp of cervix uteri?LAB: SURGICAL PATHOLOGY* Cervical Polyp Notes: CERVICAL POLYP WAS EXCISED WITHOUT DIFFICULTY AND SPECIMEN SENT TO PATHOLOGY.?? * Procedures:?Sonohysterogram:?procedure?Cervix prepped with aseptic solution Catheter advanced easily, Lining thick at 13.5 mm, Polyp(s) noted, .?UNDER STERILE CONDITIONS, GRAVE'S SPECULUM WAS INSERTED INTO THE VAGINAL CANAL AND THE CERVIX WAS WELL EXPOSED.? THE POLYP WAS GRASPED WITH FORCEPS AND THE FORCEP WAS GENTLY ROTATED CLOCKWISE UNTIL THE POLYP HAD BEEN FROM ITS ATTACHMENT TO THE CERVIX.? THIS WAS SENT TO PATHOLOGY. THEN HSONO WAS PERFORMED AND A THICK ENDOMETRIUM WAS NOTED WITH A 16 X 9 X 12 MM ENDOMETRIAL POLYP. SHE TOLERATED BOTH PROCEDURES WELL. ? * Procedure Codes:? * Follow Up:?prn * Images: Billing Information: * Visit Code:? * Procedure Codes:? * Sign off status: Completed true * Appointment Provider:?Marlene Kaplan M.D. Date:?06/08/2024 Generated for Tresa amaro/Brian/Ivelisseitting on:?03/05/2025 03:43 PM EDT History and Physical Notes * HPI (History of Present Illness) Category Sub-Category Detail Notes Category Not es New/Follow-up Patient Consult PAT HAS HAD HEAVY MENSES FOR SEVERAL MONTHS. SHE IS HERE FOR HSONO AND POSSIBLE EMB. SHE WAS ALSO NOTED TO HAVE A CERVICAL POLYP WHEN SEEN LAST MONTH. SHE IS ALSO HERE FOR POLYPECTOMY.
--- OUTSIDE RECORDS SUMMARY | 2025-03-05 15:44 | XMS_ITS | Clinical Summary ---
Author Organization [facility] lin Address [address] [place] [address] Care Team Providers Care Programming Intern Name Role Phone Pcp, No Primary Care Provider [phone] Social History Tobacco Use Types Packs/Day Years Used Date Smoking Tobacco: Never Assessed Comments Unknown Sex and Gender Information Value Date Recorded Sex Assigned at Not on file Legal Sex Female 12:55 PM EST Gender Identity Not on file Sexual Orientation Not on file Plan of Treatment Health Maintenance Due Date Last Done Comments Colorectal Cancer: COLONOSCO PY Screening every 10 yrs (or Modifier) 1975 Depression: Screening Annual ly using PHQ-2/9 in Adults 18 yrs or above (or HM Modifier)([facility]) 1975 Hepatitis C Virus Infection in Adolescents and Adults: Screening (or Modifier) ([facility]) [address] [facility] Screening Reminder: Fiona lozano for all adults ([facility]) 1994 Tobacco Smoking Cessation: i n Adults excluding Women: Behavioral and Pharmacotherapy Interventions ([facility]) 1994 DTaP/Tdap/Td Vaccines ([facility]) (1 - Tdap) 1995 Cervical Cancer Screenin 1-65 yrs of age (or Modifier) 1997 Cervical Cancer Screening: P ap every 3 yrs pts age 21-65 1997 Cervical Cancer: Pap Screeni ng with Modifier timing ([facility]) 1997 Cervical Cancer: hrHPV alone or with cotesting Pap for Pts 30-65yrs screening every 5yrs ([facility]) 1997 Colorectal Cancer Screening 45 -75 Yrs (or HM Modifier) 2021 Colorectal Cancer: FLEXIBLE SIGMOIDOSCOPY Screening every 5 yrs 2021 Colorectal Cancer: Fecal Immunochemical Test (FIT) Annually [facility] 2021 Colorectal Cancer: High-sens itivity gFOBT Screening Annually [facility] 2021 Colorectal Cancer: Stool Col oguard Screening every 3 yrs 2021 Colorectal Cancer:CT Colonog ricardo Screening every 5 yrs 2021 Lipid Screening: Every 5 yrs for Women aged 45+ (or HM Modifier) ([facility]) 2022 COVID-19 Vaccine Screening: Initial Series and Booster Status ([facility]) (2023- season) 2024 Flu Vaccination: Yearly for ages 18mos through 64 years (or Modifier)([facility]) 05/31/2025 Zoster/Shingles Vaccine Seri es Screening: Adults aged 18+ yrs (or HM Modifiers)([facility]) (1 of 2) 2026 Pneumococcal Vaccination Scr eening: Pts 0-19 & 19-49 yrs of age ([facility]) Aged Out No longer eligible based on patient's age to complete this topic Medical Devices Not on file Insurance [facility] Care Teams Programming Intern Relationship Specialty Start Date End Date Pcp, No PCP - General Family Medicine 11/21/20
--- OUTSIDE RECORDS SUMMARY | 2025-03-05 15:44 | XMS_ITS | Patient Health Record ---
Author Organization [facility] Address [address] [place] [address] Care Team Providers Care Title I Instructional Assistant Name Role Phone RODNEY SANTIAGO, [facility] Primary Care Provider Un available KaplanMarlene prescott Unavailable [phone] Allergies Allergen (clinical drug ingredient) Drug/Non Drug [...] 6.0 PROTEIN NEG GLUCOSE NEG BLOOD NEG 186664-[id number] IGP No Culture 30 Plus Reviewed date:05/22/2024 12:57:27 PM Interpretation: Performing Lab:[facility], [facility], [address], [place], Phone - [phone], Director - [facility] Notes/Report: Clinical Information:[id number] LMP / Prev Treat...[id number] No. of containers..01 ThinPrep Vial DIAGNOSIS: NEGATIVE FOR INTRAEPITHELIAL LESION OR MALIGNANCY. PREDOMINANCE OF COCCOBACILLI CONSISTENT WITH SHIFT IN VAGINAL PEPITO IS PRESENT. Specimen adequacy: Satisfact ory for evaluation. No endocervical component is identified. Clinician provided ICD10: Z01.419 Performed by: Tino patricia, Rehabilitator (ASCP) . . Note: The Pap smear [...] amplification test detects fourteen high-risk HPV types (16,18,31,33,35,39,45,51,52 ,56,58,59,66,68) without differentiation. HPV Genotype Reflex Criteria not met, HPV Genotype not performed. PDF Report Reviewed date:05/22/2024 12:57:09 PM Interpretation: Performing Lab:[facility] [place], [address] [place] [address], [address], [place], Phone - [phone], Director - [facility] Notes/Report: Clinical Information:[id number] LMP / Prev Treat...[id number] No. of containers..01 ThinPrep Vial Test, Urine Reviewed date:06/08/2024 02:25:23 PM Interpretation: Performing Lab: Notes/Report: Test, Urine Negative SURGICAL PATHOLOGY Reviewed date:06/19/2024 08:18:37 AM Interpretation: Performing Lab:Testing performed or reported by [facility], a Service of [facility], [address] [place] [address] Praveen Chavez MD, Ios Programmer [facility]# [id number] Notes/Report: Patient Name: JEAN SCHWARTZ Lab Patient : 1975 (Age: 48) Collection Date: 06/08/2024 Accession Date: 06/11/2024 Sign Out Date: 06/18/2024 Tissue Source: 1:CERVICAL POLYP Final Diagnosis: Cervical polyp: - Benign endocervical polyp. Primary Pathologist:Keaton Atkinson M.D. electronically signed out by: Keaton Atkinson M.D. / [facility] Clinical History: Cervical polyp Gross Description: Labeled cervical polyp . Received in formalin is a 1.5 x 0.4 x 0.3 cm soft avitia, red polypoid tissue. The specimen is bisected and entirely submitted. 1-2 pieces, x 2, EOE. (EG)* As of January 07, 2024, the specimen processing and staining is performed at [facility], [address] [place] [address] (CLIA#[id number]). Its performance characteristics determined by [facility]. Brittni Skinner M.D. Ios Programmer of Surgical Pathology, Ramón Garza M.D. Ios Programmer Cytopathology Phone #: [phone], On-Call Pathologist: [id number] Reason For Referral No Information Medications Medication SIG (Take, Route, Fr equency, Duration) Notes Start Date End Date Status Magnesium Oxide 400 MG TAKE 1 TABLET BY MOUTH EVERY DAY Oral for 30 Days Active carBAMazepine ER 400 MG TAKE 1 TABLET BY MOUTH TWICE A DAY WITH 100MG Oral for 90 Days Active carBAMazepine ER 100 MG TAKE 1 TABLET BY MOUTH TWICE A DAY Oral for 90 Days Active Vitamin B12 100 MCG as directed Orally Active Senna-Time 8.6 MG TAKE 2 TABLETS BY MO UTH AT BEDTIME NEEDED FOR CONSTIPATION Oral for 30 Days Active Multivitamin - 1 tablet Orally Once a day Active Ondansetron HCl 4 MG TAKE 1 TABLET BY MO UTH EVERY 8 HOURS NEEDED FOR NAUSEA AND VOMITING Oral for 3 Days Act carlos clonazePAM 2 MG DISSOLVE 1 TABLET BY MOUTH NEEDED FOR SEIZURE LONGER THAN 2 MINUTES, MAY REPEAT ONCE AND CALL 911 Oral for 30 Days Active Problems Problem Type SNOMED Code ICD Code Onset Dates Problem Status W/U Status Risk Notes Problem Information temporarily unavailable Excessive and frequent menstruation with regular cycle (N92.0) Active confirmed Problem Information temporarily unavailable Disorder involving the immune mechanism, 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 Problem Information temporarily unavailable Diverticulosis of large intestine without perforation or abscess without bleeding (K57.30) Active confirmed Problem Information temporarily unavailable Fibromyalgia (M79.7) Active confirmed Vital Signs Height 63 in 05/17/2024 Weight 174 lbs 05/17/2024 BMI 30.82 kg/m2 05/17/2024 Encounters Encounter Location Date Provider Diagnosis [employer] [address] [place] [address] 05/17/2024 Marlene Kaplan Encounter for gynecological examination (general) (routine) without abnormal findings Z01.419 ; Encounter for screening mammogram for malignant neoplasm of breast Z12.31 ; Excessive and frequent menstruation with regular cycle N92.0 and Polyp of cervix uteri N84.1 [employer] [address] [place] [address] 06/08/2024 Marlene Eusebio Excessive and freque nt menstruation with regular cycle N92.0 and Polyp of cervix uteri N84.1 [facility] [address] [place] [address] 06/08/2024 Marlene Steveueva Assessments Encounter Date Diagnosis (ICD Code) Assessment Notes Treatment Notes Treatment Clinical Notes Section Notes 05/17/2024 Encounter for gynecological examination (general) (routine) without abnormal findings (ICD-10 - Z01.419) PAP TEST WITH HPV TYPING WAS OBTAINED. 06/08/2024 Excessive and frequent menstruation with regular [...] WITHOUT DIFFICULTY AND SPECIMEN SENT TO PATHOLOGY. 05/17/2024 Encounter for screening mammogram for malignant neoplasm of breast (ICD-10 - Z12.31) REGULAR MAMMOGRAMS AND SBE'S WERE RECOMMENDED. 05/17/2024 Excessive and frequent menstruation with regular cycle (ICD-10 - N92.0) DISCUSSED COMMON CAUSES OF MENORRHAGIA. RECOMMENDED PROCEEDING WITH HSONO AND EMB. THESE WERE DISCUSSED AND PAT AGREED. KURT PRIOR TO THE PROCEDURES. 05/17/2024 Polyp of cervix uteri (ICD-10 - N84.1) DISCUSSED CERVICAL POLYP NOTED ON EXAM. DISCUSSED DX AND ADVISED POLYPECTOMY. WE CAN DO THIS AT THE SAME TIME HSONO. PROCEDURE WAS DISCUSSED AND SHE AGREED. Plan Of Treatment Pending Test Test Name Order Date MM Digital Mammo Screening 05/17/2024 Next Appt Details Provider Name:Marlene Steve greggjuan, 05/23/2025 03:00:00 PM, [address], [address], [place], [address], Insurance Providers Payer Name Payer Address Payer Phone Subscriber Number Group Number Insured Name Patient Relationship to Insured Coverage Start Date Coverage End Date [facility] [address] [place] [id number] JEAN SCHWARTZ Self - patient is the insured 3 Medical (General) History Medical History History ICD Code Disorder involving the immune mechanism, unspecified D89.9 Fibromyalgia M79.7 Diverticulosis of large inte raymundo without perforation or abscess without bleeding K57.30 Excessive and frequent menstruation with regular cycle N92.0 Polyp of cervix uteri N84.1 Surgical History Surgery Date(Month/Year) C SECTION 1996 BILATERAL TUBAL LIGATION 1997 Hospitalization History Reason Date(Month/Year) DIVERTICULITUS 2022 CHILDBIRTH
== END 2025-03-05 15:30 | disposition home or self-care (01) ==
LOC: HO.HSMS 14:30
PROVIDERS: PCP Internal Medicine; Visit Provider Nurse Practitioner Family
DX: R06.83 Snoring (principal); G47.19 Other hypersomnia; G47.9 Sleep disorder, unspecified; R56.9 Unspecified convulsions; G93.89 Other specified disorders of brain; G43.109 Migraine with aura, not intractable, without status migrainosus
CPT/HCPCS: 99214

== ENCOUNTER 2025-03-05 14:24 | Outpatient (REF) | payer OTHER, SELFPAY ==
--- OUTSIDE RECORDS SUMMARY | 2025-03-05 16:39 | XMS_ITS | Clinical Summary ---
Author Organization [facility] lin Address [address] [place] [address] Care Team Providers Care Post Hole Digger Name Role Phone Pcp, No Primary Care Provider [phone] Social History Tobacco Use Types Packs/Day Years [...] Adults 18 yrs or above (or HM Modifier)([facility]) 1975 Hepatitis C Virus Infection in Adolescents and Adults: Screening (or Modifier) ([facility]) [address] [facility] Screening Reminder: Fiona lozano for all adults ([facility]) 1994 Tobacco Smoking Cessation: i n Adults excluding Women: Behavioral and Pharmacotherapy Interventions ([facility]) 1994 DTaP/Tdap/Td Vaccines ([facility]) (1 - Tdap) 1995 Cervical Cancer Screenin 1-65 yrs of age (or Modifier) 1997 Cervical Cancer Screening: P ap every 3 yrs pts age 21-65 1997 Cervical Cancer: Pap Screeni ng with Modifier timing ([facility]) 1997 Cervical Cancer: hrHPV alone or with cotesting Pap for Pts 30-65yrs screening every 5yrs ([facility]) 1997 Colorectal Cancer Screening 45 -75 Yrs (or HM Modifier) 2021 Colorectal Cancer: FLEXIBLE SIGMOIDOSCOPY Screening every 5 yrs 2021 Colorectal Cancer: Fecal Immunochemical Test (FIT) Annually [facility] 2021 Colorectal Cancer: High-sens itivity gFOBT Screening Annually [facility] 2021 Colorectal Cancer: Stool Col oguard Screening every 3 yrs 2021 Colorectal Cancer:CT Colonog ricardo Screening every 5 yrs 2021 Lipid Screening: Every 5 yrs for Women aged 45+ (or HM Modifier) ([facility]) 2022 COVID-19 Vaccine Screening: Initial Series and Booster Status ([facility]) (2023- season) 2024 Flu Vaccination: Yearly for ages 18mos through 64 years (or Modifier)([facility]) 05/31/2025 Zoster/Shingles Vaccine Seri es Screening: Adults aged 18+ yrs (or HM Modifiers)([facility]) (1 of 2) 2026 Pneumococcal Vaccination Scr eening: Pts 0-19 & 19-49 yrs of age ([facility]) Aged Out No longer eligible based on patient's age to complete this topic Medical Devices Not on file Insurance [facility] Care Teams Post Hole Digger Relationship Specialty Start Date End Date Pcp, No PCP - General Family Medicine 11/21/20
[2025-03-05 17:38] LABS: MANUAL DIFF FLAG NO
[2025-03-05 17:48] LABS: Basophils Percent Auto 0.5 % (0-2); Eosinophils Absolute Auto 0.2 X10*3/uL (0.0-0.4); Eosinophils Percent Auto 3.3 % (0-4); Hematocrit 38.2 % (37.0-47.0); Hemoglobin 12.5 g/dl (12.0-16.0); Imm Gran Abs Auto 0.01 X10*3/uL (0.00-0.03); Imm Gran Pct Auto 0.2 % (0.0-0.4); Lymphocytes Percent Auto 33.6 % (20-40); Mean Corpuscular HGB Conc 32.7 g/dl (31.0-35.0); Mean Corpuscular Hemoglobin 32.3 pg (27.0-33.0); Mean Corpuscular Volume 98.7 fL (80.0-98.0); Mean Platelet Volume 9.6 fL (9.4-12.3); Monocytes Absolute Auto 0.4 X10*3/uL (0.1-1.2); Monocytes Percent Auto 6.3 % (2-11); Neutrophils Absolute Auto 3.4 x10*3/uL (2.0-8.3); Neutrophils Percent Auto 56.1 % (45-73); Platelet Count 313 X10*3/uL (160-400); Red Blood Count 3.87 X10*6/uL (4.20-5.50); Red Cell Distribution Width 12.2 % (11.0-16.0)
[2025-03-05 18:47] LABS: Alanine Aminotransferase 24 U/L (0-31); Albumin Level 4.1 g/dL (3.5-5.0); Alkaline Phosphatase 77 U/L (39-117); Anion Gap 10 (12-20); Aspartate Amino Transferase 20 U/L (5-31); Bilirubin Total 0.1 mg/dL (0.0-1.0); Blood Urea Nitrogen 14 mg/dL (9-16); Calcium 8.5 mg/dL (8.4-10.2); Carbon Dioxide 29 mmol/L (22-29); Chloride 107 mmol/L (96-108); Estimated Glomerular Filt Rate > 60; Glucose Random 82 mg/dL (60-115); Potassium 3.8 mmol/L (3.3-5.1); Sodium 142 mmol/L (135-145); Total Protein 6.6 g/dL (6.5-8.0)
[2025-03-09 14:33] LABS: Vitamin D 25-OH, D2 <4 ng/mL; Vitamin D 25-OH, D3 50 ng/mL; Vitamin D 25-OH, Total 50 ng/mL (30-100)
== END 2025-03-05 14:25 | disposition home or self-care (01) ==
LOC: HO.HKASLDS 14:24
PROVIDERS: PCP Internal Medicine; Visit Provider Nurse Practitioner Family
DX: G40.909 Epilepsy, unspecified, not intractable, without status epilepticus (principal); R53.83 Other fatigue; E66.9 Obesity, unspecified
CPT/HCPCS: 36415; 80053; 80156; 82306; 85025

== ENCOUNTER → 2025-07-09 15:27 | Outpatient (REF) | payer OTHER, SELFPAY ==
--- OUTSIDE RECORDS SUMMARY | 2024-01-26 04:50 | XMS_ITS ---
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 :1975 A ge:48 Y S ex:Female Date:01/26/2024 Address:[address] [place], [place] [id number] Pcp:DACIA STEVENS MD Subjective: * Chief Complaints: * 1 . 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 * Medical History: Objective: * Vitals: Assessment: Plan: * Treatment: * Images: Billing Information: * Visit Code: * Procedure Codes: * Electronic signature of Karolyn Kaplan MD on 07/09/2025 at 05:39 PM EDT Sign off status: Pending * Appointment Provider: Palma Kaplan M.D. Date: 0 01/26/2024 Generated for Printi ng/Fajon[employer]/eTransmitting on: 0 07/09/2025 05:39 PM EDT
--- OUTSIDE RECORDS SUMMARY | 2025-05-23 11:00 | XMS_ITS ---
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 :1975 A ge:49 Y S ex:Female Date:05/23/2025 Address:[address] [place], [place] [phone] Pcp:DACIA STEVENS MD Subjective: * Chief Complaints: * 1 . 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 * Medical History: Objective: * Vitals: Assessment: Plan: * Treatment: * Images: Billing Information: * Visit Code: * Procedure Codes: * Electronic signature of Karolyn Kaplan MD on 07/09/2025 at 05:39 PM EDT Sign off status: Pending * Appointment Provider: Palma Kaplan M.D. Date: 05/23/2025 Generated for Printi ng/Fajulien/eTransmitting on: 07/09/2025 05:39 PM EDT
--- OUTSIDE RECORDS SUMMARY | 2025-07-09 17:40 | XMS_ITS | Continuity of Care Document ---
Author Organization [facility] Address [address] [address] Insurance Providers Payer Plan Claims Address Claims Phone Policy Number Group Number Relation Employer Guarantor Name Guarantor Guarantor Address Guarantor Phone GOVIND Figueroa [facility], [address], [place] [address] tel:[phone] [id number] Self Myra Joey 1975 [address] [place] [id number] [address] [facility] [address], [place] [address] [facility] [id number] Self Myra Bucknerlin 1975 [address] [place] [address] Problems Condition ICD9 code ICD10 code SNOMED code Start Date End Date S tatus Encounter for screening for other metabolic disorders Z13.228 Results No Results Allergies, adverse reactions, alerts No known allergies and adverse reactions Medications No administered medications reported Vital Signs No vital signs reported Social History No smoking Hx information available
--- OUTSIDE RECORDS SUMMARY | 2025-07-09 17:40 | XMS_ITS | Patient Health Record ---
Author Organization [facility] Address [address] [place] [address] Care Team Providers Care Craft Center Director Name Role Phone RODNEY SANTIAGO, [facility] Primary Care Provider Un available Marlene Kaplan Unavailable [phone] Allergies Allergen (clinical drug ingredient) Drug/Non Drug Allergy documented on EMR Reaction Allergy Type Onset Date Status Septra rash Drug Allergy Active Penicillin anaphylaxis Drug Allergy Acti ve Substance with sulfonamide structure and antibacterial mechanism of action (substance) Sulfa Antibiotics rash Drug Allergy Active Reason For Referral No Information Medications Medication SIG (Take, Route, Fr equency, Duration) Notes Start Date End Date Status Magnesium Oxide 400 MG TAKE 1 TABLET BY MOUTH EVERY DAY Oral; Duration: 30 Days Acti ve carBAMazepine ER 400 MG TAKE 1 TABLET BY MOUTH TWICE A DAY WITH 100MG Oral; Duration: 90 Days Active carBAMazepine ER 100 MG TAKE 1 TABLET BY MOUTH TWICE A DAY Oral; Duration: 90 Days Active Vitamin B12 100 MCG as directed Orally Active Senna-Time 8.6 MG TAKE 2 TABLETS BY MO UTH AT BEDTIME NEEDED FOR CONSTIPATION Oral; Duration: 30 Days Active Multivitamin - 1 tablet Orally Once a day Active Ondansetron HCl 4 MG TAKE 1 TABLET BY MO UTH EVERY 8 HOURS NEEDED FOR NAUSEA AND VOMITING Oral; Duration: 3 Days Active clonazePAM 2 MG DISSOLVE 1 TABLET BY MOUTH NEEDED FOR SEIZURE LONGER THAN 2 MINUTES, MAY REPEAT ONCE AND CALL 911 Oral; Duration: 30 Days Active Problems Problem Type SNOMED Code ICD Code Onset Dates Problem Status W/U Status Risk Notes Problem Excessive and frequent menstruation (442114388) Excessive and frequent menstruation with regular cycle (N92.0) Active confirmed Problem Disorder of immune function (352829560) Disorder involving the immune mechanism, 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 Problem Diverticular disease of colon (398594376) Diverticulosis of large intestine without perforation or abscess without bleeding (K57.30) Active confirmed Problem Fibromyalgia (322105906) Fibromyalgia (M79.7) Active confirmed Encounters Encounter Location Date Provider Diagnosis Total [facility] [address] [place] [address] 05/23/2025 Marlene Kaplan Plan Of Treatment Pending Test Test Name Order Date MM Digital Mammo Screening 05/17/2024 Insurance Providers Payer Name Payer Address Payer Phone Subscriber Number Group Number Insured Name Patient Relationship to Insured Coverage Start Date Coverage End Date [facility] [address] [place] [address] [id number] JEAN SCHWARTZ Self - patient is the [...]
== END ==
LOC: HO.SL 15:27
PROVIDERS: PCP Internal Medicine; Visit Provider Nurse Practitioner Family
DX: G47.33 Obstructive sleep apnea (adult) (pediatric) (principal); R06.83 Snoring; G47.19 Other hypersomnia; G47.9 Sleep disorder, unspecified
CPT/HCPCS: 95806

== ENCOUNTER → 2025-07-09 15:35 | Outpatient (BNV) | payer OTHER, SELFPAY | PROVIDERS: PCP Internal Medicine; Visit Provider Psychiatry & Neurology Neurology | DX: G47.33 Obstructive sleep apnea (adult) (pediatric) (principal) | CPT/HCPCS: 95806 ==

== ENCOUNTER 2025-09-04 14:15 | Outpatient (AMB) | payer OTHER, SELFPAY ==
--- OUTSIDE RECORDS SUMMARY | 2025-05-23 10:00 | XMS_ITS ---
Author Organization [employer] Address [address] [address] Care Team Providers Care Electrician Aircraft Name Role Phone RODNEY SANTIAGO, DACIA Primary Care Provider Un available Marlene Kaplan Unavailable [phone] REASON FOR VISIT Annual GEOLOGICAL E LOGGER Physical Encounters Encounter Location Date Provider Diagnosis [facility] [address] [place] [address] [email or web address] [address] [address] 05/23/2025 Marlene Kaplan Plan Of Treatment No Information Progress Notes * JEAN SCHWARTZDOB:1975 (49 yo F)Acc No.[id number]:05/23/2025 PROGRESS NOTES Patient: JEAN LIU Appointment Provider: Palma Kaplan M.D. :1975 A ge:49 Y S ex:Female Date:05/23/2025 Address:[address] [place], [place] [address] Pcp:DACIA STEVENS MD Subjective: * Chief Complaints: * 1 . Annual GEOLOGICAL E LOGGER Physical. * Medical History: Objective: * Vitals: Assessment: Plan: * Treatment: * Images: Billing Information: * Visit Code: * Procedure Codes: * Electronic signature of Karolyn Kaplan MD on 09/04/2025 at 05:29 PM EST Sign off status: Pending * Appointment Provider: Palma Kaplan M.D. Date: 0 05/23/2025 Generated for Elkini prem/Brian/eTransmitting on: 1 11/04/2024 05:29 PM EST
[2025-09-04 14:20] VITALS: BP 110/80; PULSE 87; O2SAT 93
--- NOTE | 2025-09-04 14:20 | A.OFFVIS_ITS ---
Vital Signs 09/04/25 14:20 Weight 193 lb BP 110/80 Blood Pressure Location Rt brachial Position Sitting Pulse 87 Pulse Source Pulse Oximeter Pulse Oximetry (%) 93 Oxygen Delivery Method Room Air Intake Visit Reasons: Follow up Intake Note: Patient presents follow up for seizures/fatigue. Fluorescent Solution Mixer Required: No Accompanied by: Self / Same As Patient Allergies penicillin V Allergy (Unknown, Verified 09/04/25 14:24) unknown Penicillins (PENICILLINS) Allergy (Unknown, Verified 09/04/25 14:24) BREATHING DIFFICULTIES AND RASH sulfamethoxazole (From SEPTRA) Allergy (Unknown, Verified 09/04/25 14:24) RASH AND HIVES trimethoprim (From SEPTRA) Allergy (Unknown, Verified 09/04/25 14:24) RASH AND HIVES Septra Allergy (Unknown, Uncoded 03/01/24 10:51) Unknown Medication List - Last Reconciled 09/04/25 by MYRTLE Rain carbamazepine ER 100 mg PO BID 90 days carbamazepine ER 400 mg PO BID 90 days clonazepam 2 mg PO prn seizure lasting > 2 minutes, may repeat x's 1 (and call 911) PRN; 30 days ibuprofen 800 mg PO .As needed magnesium oxide 400 mg PO BEDTIME 90 days mecobalamin (vitamin B12) mcg PO riboflavin (vitamin B2) (Vitamin B-2) 100 mg PO BID riboflavin (vitamin B2) 400 mg PO DAILY 90 days semaglutide mg subcut sennosides (senna) 17.2 mg PO BEDTIME PRN HPI Comments Details: 49-yr-old female presents for f/u visit of seizure, intracranial suprasellar mass, and migraine. Interval 07/09/2025 home sleep study showed mild EFE with AHI 8 per hour, O2 katharina 79%, SpO2 under 88% for 5.5 minute of study time, and average SpO2 93%. Snoring occurred for 10% of study time. She contineus to try maintain a low cab diet. She has stopped semiglutide, as she felt she was craving more food, and was having increased constipation which was worrisome due to her history of diverticulosis. After walking on a walking pad x's 30 minutes, she can feel lightheadeded and off-balance. She is now trying to make sure she is taking more water. She has not had any interval seizure activity. She his due for her f/u brain MRI in 2025- to monitor her suprasellar mass. Followed by Dr. Reyes. She has noticed vision changes, much more difficulty driving at night- the vehicle headlights look like a starburst. She continues to have forgetfulness, and is not as on top of her work and home obligations as she previously was. She now finds that she has to write everything down, or else she will forget to pay a bill, or bring something to event she forgot she said she would attend and bring food with her. She endorses a h/o procrastination, restlessness, doodling (draws repetitive 3 dimensional shapes). She is unsure if she has a family h/o ADD/ADHD, but her older son may have had borderline ADD, and maybe her sister could have ADD, possibly her mother had multiple unconfirmed mx dx's, sister's dtrs have ADD and ADD/ODD. States she is just having occasional mild migraine attack, but has not had a severe migraine attack in a long time. Typically treats migraines with increase fluid, Tylenol, and sometimes takes a nap for a few hrs, may use a cold cap. Trying to avoid NSAIDs d/t diverticulosis. [facility] Medical History (Updated 09/04/25 @ 21:38 by MYRTLE Rain) delivery delivered Surgical History (Updated 03/05/25 @ 14:39 by Naina Coy CMA) H/O colonoscopy H/O tubal ligation Family History Father Cancer Mother Cancer HTN (hypertension) Maternal Grandmother Skin cancer Maternal Grandfather HTN (hypertension) Maternal Aunt HTN (hypertension) Social History Alcohol intake: current Alcohol intake frequency: holidays/special occasions only Patient Tobacco Use Status: Never used Tobacco Physical Exam Vital Signs: Last Vital Signs Pulse 87 09/04/25 14:20 BP 110/80 09/04/25 14:20 Pulse Ox 93 09/04/25 14:20 Oxygen Delivery Method Room Air 09/04/25 14:20 Const General: cooperative and no acute distress Orientation/consciousness: patient oriented x3 HEENT Head: Yes normocephalic Resp Effort & Inspection: normal respiratory effort and able to speak in complete sentences Neuro General: patient oriented x3, gait normal and CN's II-XI intact bilaterally Cognition (Neuro): normal cognition Motor exam (neuro): 5/5 motor strength present throughout Psych Appearance: grossly normal Mental Status: mental status grossly normal Speech and movement: Normal speech and movement present Affect: normal affect Attitude: cooperative Thought process: Normal thought process present Thought content: Normal thought content present Insight: Good insight present (Psych) Judgement: Good judgement present (Psych) Assessment & Plan Assessment & Plan (1) Snoring: Code(s): R06.83 - Snoring Category: Medical (2) Excessive daytime sleepiness: Code(s): G47.19 - Other hypersomnia Category: Medical (3) Sleep difficulties: Code(s): G47.9 - Sleep disorder, unspecified Category: Medical (4) Focal seizure: Code(s): R56.9 - Unspecified convulsions Category: Medical (5) Suprasellar mass: Code(s): G93.89 - Other specified disorders of brain Category: Medical (6) Migraine with aura and without status migrainosus, not intractable: Comment: episodic Code(s): G43.109 - Migraine with aura, not intractable, without status migrainosus Category: Medical (7) Forgetfulness: Code(s): R68.89 - Other general symptoms and signs Category: Medical (8) Cognitive changes: Comment: Mini-mental exam 30/30 Code(s): R41.89 - Other symptoms and signs involving cognitive functions and awareness Category: Medical Plan For mild EFE in the setting of daytime sleepiness, cognitive difficulties: Reviewed interval labs: WNL Reviewed HST: Mild EFE with mild nocturnal hypoxemia Start APAP 5-20 cmH2O w/ EPR set to need nightly > 4 hours. * Consider follow-up nocturnal pulse oximetry reading x1, once she has started APAP therapy. * Clean CPAP machine and supplies routinely. * Change CPAP supplies routinely. * Use distilled water in CPAP water reservoir. * Pt to contact us or respiratory company with any questions or concerns. We will request baseline very neuropsychiatric eval For seizure and suprasellar mass: Continue Tegretol XR 500mg bid. Clonazepam 2mg ODT prn breakthrough seizure > 2 min. Pt has seizure plan with work/family. 2023 brain MRI showed stable suprasellar mass. Follow-up with Dr. Reyes as scheduled for follow-up brain MRI in 2025. Check CBC, CMP, TSH, Tegretol level at follow-up For migraine: Continue B2 400mg qam, Magnesium 400mg qhs. Continue MVI, B-12. OTC Tylenol and rest prn migraine. Migraine tx contraindications- NSAIDs d/t diverticulosis. Future considerations: gepant, if migraines worsen. Will follow-up upon review of above and patient to follow-up in clinic in 6 months or sooner prn. Orders: Referrals Neuropsychiatry Referral R41.89 - Other symptoms and signs involving cognitive functions and awareness, R68.89 - Other general symptoms and signs Coding Level of Care Code Est Pt Level 4 (03345) Diagnoses Snoring R06.83 Excessive daytime sleepiness G47.19 Sleep difficulties G47.9 Focal seizure R56.9 Suprasellar mass G93.89 Migraine with aura and without status migrainosus, not intractable G43.109 Forgetfulness R68.89 Cognitive changes R41.89
--- OUTSIDE RECORDS SUMMARY | 2025-09-04 17:29 | XMS_ITS | Clinical Summary ---
Author Organization [facility] Address [address] [place] [address] Care Team Providers Care Residential Roofer Name Role Phone Pcp, No Primary Care Provider [phone] Social History Tobacco Use Types Packs/Day Years Used Date Smoking Tobacco: Never Assessed Comments Unknown Sex and Gender Information Value Date Recorded Sex Assigned at Not on file Legal Sex Female 12:55 PM EST Gender Identity Not on file Sexual Orientation Not on file Plan of Treatment Not on file Medical Devices Not on file Insurance [facility] Care Teams Residential Roofer Relationship Specialty Start Date End Date Pcp, No PCP - General Family Medicine 11/21/20
--- OUTSIDE RECORDS SUMMARY | 2025-09-04 17:29 | XMS_ITS | Patient Health Record ---
Author Organization [facility] Address [address] [place] [address] Care Team Providers Care Radiology Transcriptionist Name Role Phone RODNEY SANTIAGO, [facility] Primary Care Provider Un available Marlene Kaplan Unavailable [phone] Allergies Allergen (clinical drug ingredient) Drug/Non Drug [...] Risk Notes Problem Excessive and frequent menstruation (555598299) Excessive and frequent menstruation with regular cycle (N92.0) Active confirmed Problem Disorder of immune function (884605526) Disorder involving the immune mechanism, 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 Problem Diverticular disease of colon (883277818) Diverticulosis of large intestine without perforation or abscess without bleeding (K57.30) Active confirmed Problem Fibromyalgia (376265651) Fibromyalgia (M79.7) Active confirmed Encounters Encounter Location Date Provider Diagnosis Total [facility] [address] [place] [address] 05/23/2025 Marlene Kaplan Plan Of Treatment Pending Test Test Name Order Date MM Digital Mammo Screening 05/17/2024 Insurance Providers Payer Name Payer Address Payer Phone Subscriber Number Group Number Insured Name Patient Relationship to Insured Coverage Start Date Coverage End Date [facility] [address] [place] [address] [phone] [id number] JEAN SCHWARTZ Self - patient is the [...]
--- OUTSIDE RECORDS SUMMARY | 2025-09-04 17:29 | XMS_ITS | Continuity of Care Document ---
Author Organization [facility] Address [address] [address] Insurance Providers Payer Plan Claims Address Claims Phone Policy Number Group Number Relation Employer Guarantor Name Guarantor Guarantor Address Guarantor Phone GOVIND Figueroa [facility], [address], [place] [address] tel:[phone] [id number] [id number] Self Myra Joey 1975 [address] [place] [place] [id number] [address] [facility] [address], [place] [address] [facility] [id number] Self Myra Bucknerlin 1975 [address] [place] [address] Problems Condition ICD9 code ICD10 code SNOMED code Start Date End Date S tatus Encounter for screening for other metabolic disorders Z13.228 Results No Results Allergies, adverse reactions, alerts No known allergies and adverse reactions Medications No administered medications reported Vital Signs No vital signs reported Social History No smoking Hx information available
== END 2025-09-04 15:31 | disposition home or self-care (01) ==
LOC: HO.HSMS 14:15
PROVIDERS: PCP Internal Medicine; Visit Provider Nurse Practitioner Family
DX: R06.83 Snoring (principal); G47.19 Other hypersomnia; G47.9 Sleep disorder, unspecified; R56.9 Unspecified convulsions; G93.89 Other specified disorders of brain; G43.109 Migraine with aura, not intractable, without status migrainosus; R68.89 Other general symptoms and signs; R41.89 Other symptoms and signs involving cognitive functions and awareness
CPT/HCPCS: 99214